=== PATIENT | female | born 1975 | race Two or more races ===

== ENCOUNTER 2018-10-18 08:00 | Emergency (ER) | payer MEDICAID ==
[~2018-10-18] VITALS: Ht 160 cm; Wt 108.9 kg
[~2018-10-18 08:00] MED LIST: NAP500T PO
[2018-10-18 08:19] VITALS: BP 157/103
== END 2018-10-18 08:41 | disposition home or self-care (01) ==
LOC: ER 08:00
DX: I10 Essential (primary) hypertension (principal); M19.90 Unspecified osteoarthritis, unspecified site; Z76.0 Encounter for issue of repeat prescription; Z88.0 Allergy status to penicillin; Z88.6 Allergy status to analgesic agent

== ENCOUNTER 2018-11-01 14:03 | Emergency (ER) | payer MEDICAID ==
[~2018-11-01] VITALS: Ht 160 cm; Wt 109.8 kg
[2018-11-01 14:30] VITALS: BP 153/110
== END 2018-11-01 14:59 | disposition home or self-care (01) ==
LOC: ER 14:06
DX: H66.93 Otitis media, unspecified, bilateral (principal); K21.9 Gastro-esophageal reflux disease without esophagitis; I10 Essential (primary) hypertension; Z76.0 Encounter for issue of repeat prescription; Z88.0 Allergy status to penicillin; Z88.6 Allergy status to analgesic agent

== ENCOUNTER 2020-02-18 20:05 | Emergency (ER) | payer MEDICAID ==
[~2020-02-18] VITALS: Ht 160 cm; Wt 99.8 kg
[2020-02-18] MEDS ORDERED: IBUPROFEN 800 MG TAB PO ONE (22:00)
[2020-02-18] MEDS ORDERED: ACETAMINOPHEN 500 MG TAB PO ONE (22:00)
[2020-02-18 22:36] VITALS: BP 146/82
== END 2020-02-18 22:38 | disposition home or self-care (01) ==
LOC: ER 20:05
DX: S93.401A Sprain of unspecified ligament of right ankle, initial encounter (principal); M25.461 Effusion, right knee; F41.9 Anxiety disorder, unspecified; M19.90 Unspecified osteoarthritis, unspecified site; K21.9 Gastro-esophageal reflux disease without esophagitis; I10 Essential (primary) hypertension; F20.9 Schizophrenia, unspecified; Z88.0 Allergy status to penicillin; Z88.5 Allergy status to narcotic agent; W18.2XXA Fall in (into) shower or empty bathtub, initial encounter; Y93.89 Activity, other specified; Y92.89 Other specified places as the place of occurrence of the external cause; Y99.8 Other external cause status
CPT/HCPCS: 73562; 73610

== ENCOUNTER 2022-12-06 12:17 | Emergency (ER) | payer MEDICAID ==
[~2022-12-06] VITALS: Ht 160 cm; Wt 81.0 kg
[2022-12-06 13:50] LABS: Basophils # (auto) 0.1 10 ^3/uL (0-0.2); Basophils % (auto) 0.4 % (0.0-2.0); Eosinophils # (auto) 0 10 ^3/uL (0-0.8); Eosinophils % (auto) 0.1 % (0.0-7.0); Hematocrit 43.2 % (36.0-46.0); Hemoglobin 14.7 g/dL (12.2-16.2); Lymphocytes # (auto) 2.5 10 ^3/uL (0.4-5.4); Lymphocytes % (auto) 13.5 % (10.0-50.0); Mean Corpuscular Hemoglobin 30.5 pg (28.0-32.0); Mean Corpuscular Hgb Conc. 33.9 g/dL (32.0-36.0); Monocytes # (auto) 1.1 10 ^3/uL (0-1.3); Monocytes % (auto) 6.2 % (0.0-12.0); Neutrophils # (auto) 14.7 10 ^3/uL (1.6-8.6); Neutrophils % (auto) 79.8 % (37.0-80.0); Red Blood Cells 4.81 10^6/uL (4.0-5.20); Red Cell Distribution Width 13.2 % (11.8-14.3); White Blood Cell 18.4 10^3/uL (4.4-10.8)
[2022-12-06 14:30] LABS: BUN/Creatinine Ratio 14.3 (10.0-20.0); Calcium 9.6 mg/dL (8.5-10.1); Potassium 4.4 mmol/L (3.5-5.1)
[2022-12-06 14:33] LABS: Bilirubin, Total 0.8 mg/dL (0.2-1.0)
[2022-12-06] MEDS ORDERED: LORazepam 2MG/ML-1ML VIAL IV ONE (16:45)
[2022-12-06] MEDS ORDERED: LORazepam 2MG/ML-1ML VIAL ONE (16:48)
[2022-12-06] MEDS ORDERED: ASPirin 325 MG TAB PO ONE (20:15)
[2022-12-06] MEDS ORDERED: NITROGLYCERIN 0.4 MG SL TAB SL PRN (20:15)
[2022-12-06] MEDS ORDERED: ACETAMINOPHEN 325 MG TAB PO PRN (20:15)
[2022-12-06] MEDS ORDERED: SODIUM CHLORIDE 0.9% 1,000 ML IV SCH (20:15)
[2022-12-06] MEDS ORDERED: ENOXAPARIN SOD 80 MG/0.8ML SYRINGE SC ONE (20:15)
[2022-12-06] MEDS ORDERED: MORPHINE SULFATE INJ 2 MG/ml SYRG IV PRN (20:15)
[2022-12-06 21:02] LABS: Cholesterol 181 mg/dL (< 200); HDL Cholesterol 63 mg/dL (40-59); LDL Cholesterol 106 mg/dL (< 100); Triglycerides 93 mg/dL (< 150)
[2022-12-06] MEDS ORDERED: LORazepam 2MG/ML-1ML VIAL IV PRN (21:15)
[2022-12-06 22:00] LABS: Urine Bacteria NONE SEEN /hpf (None Seen); Urine Blood 2+ /uL (Negative); Urine Mucus FEW (None Seen); Urine Specific Gravity 1.024 (1.001-1.035); Urine WBC 26 /hpf (0 - 5)
[2022-12-06] MEDS ORDERED: ENOXAPARIN SOD 80 MG/0.8ML SYRINGE SC SCH (22:00)
[2022-12-06 22:18] LABS: Amphetamine Screen, Urine POSITIVE (NEGATIVE); Barbiturate Scree,Urine NEGATIVE (NEGATIVE); Cannabinoid Screen, Urine NEGATIVE (NEGATIVE)
[2022-12-06 23:04] LABS: Alcohol, Urine < 3.0 mg/dL (0-10)
[2022-12-06 23:05] LABS: Benzodiazephine Screen, Urine NEGATIVE (NEGATIVE); Cocaine Screen, Urine NEGATIVE (NEGATIVE); Opiate Scree,Urine NEGATIVE (NEGATIVE); Phencyclidine Screen, Urine NEGATIVE (NEGATIVE)
[2022-12-07 04:08] VITALS: BP 142/98
[2022-12-07 05:59] LABS: Basophils # (auto) 0.1 10 ^3/uL (0-0.2); Basophils % (auto) 0.5 % (0.0-2.0); Eosinophils # (auto) 0.1 10 ^3/uL (0-0.8); Eosinophils % (auto) 1.2 % (0.0-7.0); Hematocrit 41.1 % (36.0-46.0); Hemoglobin 14.1 g/dL (12.2-16.2); Lymphocytes # (auto) 3.6 10 ^3/uL (0.4-5.4); Lymphocytes % (auto) 33.1 % (10.0-50.0); Mean Corpuscular Hemoglobin 30.7 pg (28.0-32.0); Mean Corpuscular Hgb Conc. 34.2 g/dL (32.0-36.0); Mean Corpuscular Volume 89.8 fL (80.0-100.0); Monocytes # (auto) 0.8 10 ^3/uL (0-1.3); Monocytes % (auto) 7.2 % (0.0-12.0); Neutrophils # (auto) 6.4 10 ^3/uL (1.6-8.6); Red Blood Cells 4.58 10^6/uL (4.0-5.20); Red Cell Distribution Width 13.2 % (11.8-14.3)
[2022-12-07 06:45] LABS: Albumin 3.6 g/dL (3.4-5.0); BUN/Creatinine Ratio 12.5 (10.0-20.0); Bilirubin, Total 0.6 mg/dL (0.2-1.0); Calcium 9.4 mg/dL (8.5-10.1); Total Protein 7.6 g/dL (6.4-8.2)
[2022-12-07] MEDS ORDERED: ASPirin 81 mg TAB PO SCH (10:00)
== END 2022-12-07 05:26 | disposition left against medical advice (07) ==
LOC: ER 12:17 → EDBD 12:17 → TELE 20:16 → UNDOADMIN 20:16 → ER 12-07 05:26
DX: I21.4 Non-ST elevation (NSTEMI) myocardial infarction (principal); K21.9 Gastro-esophageal reflux disease without esophagitis; I10 Essential (primary) hypertension; F41.9 Anxiety disorder, unspecified; Z79.899 Other long term (current) drug therapy
CPT/HCPCS: 36415; 70450; 71045; 80053; 80061; 80307; 81001; 83036; 84443; 84484; 85025; 87040; 93005; 93886; 96361; 96374; 96375; 96376; 99291; J1650; J2060; J7030; G0378

== ENCOUNTER 2023-03-04 15:30 | Inpatient (IN) | payer MEDICAID ==
[~2023-03-04] VITALS: Ht 160 cm; Wt 98.2 kg
[2023-03-04] MEDS ORDERED: SODIUM CHLORIDE 0.9% 1,000 ML IVB ONE (15:45)
[2023-03-04 16:17] LABS: Basophils # (auto) 0 10 ^3/uL (0-0.2); Basophils % (auto) 0.2 % (0.0-2.0); Eosinophils # (auto) 0.1 10 ^3/uL (0-0.8); Eosinophils % (auto) 0.8 % (0.0-7.0); Hematocrit 39.3 % (36.0-46.0); Hemoglobin 13.1 g/dL (12.2-16.2); Lymphocytes # (auto) 2.5 10 ^3/uL (0.4-5.4); Lymphocytes % (auto) 15.3 % (10.0-50.0); Mean Corpuscular Hemoglobin 29.8 pg (28.0-32.0); Mean Corpuscular Hgb Conc. 33.4 g/dL (32.0-36.0); Mean Corpuscular Volume 89.4 fL (80.0-100.0); Monocytes % (auto) 6.1 % (0.0-12.0); Neutrophils # (auto) 12.8 10 ^3/uL (1.6-8.6); Neutrophils % (auto) 77.6 % (37.0-80.0); Red Cell Distribution Width 13.6 % (11.8-14.3); White Blood Cell 16.5 10^3/uL (4.4-10.8)
[2023-03-04 16:25] VITALS: PULSE 80; RESP 16; O2SAT 97
[2023-03-04] MEDS ORDERED: IOHEXOL 300 MG/ML 100ML BOTTLE IJ ONE (16:27)
[2023-03-04 16:33] VITALS: PULSE 83; RESP 16; O2SAT 98
[2023-03-04 16:45] LABS: Albumin 3.5 g/dL (3.4-5.0); Anion Gap 5 (5-15); Blood Alcohol < 3.0 mg/dL (<10); Blood Urea Nitrogen 14 mg/dL (7-18); Calcium 8.8 mg/dL (8.5-10.1); Carbon Dioxide 26 mmol/L (21-32); Chloride 106 mmol/L (98-107); Glucose 87 mg/dL (74-106); Magnesium 2.4 mg/dL (1.6-2.6); Potassium 4.5 mmol/L (3.5-5.1); Sodium 137 mmol/L (136-145)
[2023-03-04 16:49] LABS: Alanine Aminotransferase 22 U/L (13-56); Alkaline Phosphatase 80 U/L (45-117); Aspartate Aminotransferase 19 U/L (15-37); BUN/Creatinine Ratio 8.6 (10.0-20.0); Bilirubin, Total 0.4 mg/dL (0.2-1.0); GFR African American 44 mL/min; GFR Non-African American 36 mL/min; Lactic Acid w/Reflex 3.2 mmol/L (0.4-2.0); Total Protein 6.6 g/dL (6.4-8.2)
[2023-03-04 16:52] LABS: Urine Bacteria NONE SEEN /hpf (None Seen); Urine Blood 3+ /uL (Negative); Urine Hyaline Cast MOD /lpf (0 - 2); Urine Mucus FEW (None Seen); Urine Specific Gravity 1.016 (1.001-1.035); Urine WBC 5 /hpf (0 - 5)
[2023-03-04] MEDS ORDERED: IOHEXOL 350 MG/ML 100ML IJ ONE (17:10)
[2023-03-04 17:11] LABS: Alcohol, Urine < 3.0 mg/dL (0-10); Amphetamine Screen, Urine NEGATIVE (NEGATIVE); Barbiturate Scree,Urine NEGATIVE (NEGATIVE); Benzodiazephine Screen, Urine NEGATIVE (NEGATIVE); Cannabinoid Screen, Urine NEGATIVE (NEGATIVE); Cocaine Screen, Urine NEGATIVE (NEGATIVE); Opiate Scree,Urine NEGATIVE (NEGATIVE); Phencyclidine Screen, Urine NEGATIVE (NEGATIVE)
[2023-03-04] MEDS ORDERED: AZITHROMYCIN 500MG/ 250ML 250 ML IV ONE (17:15)
[2023-03-04] MEDS ORDERED: levoFLOXacin 500MG 100 ML IV ONE (17:15)
[2023-03-04 20:10] VITALS: PULSE 89; RESP 14; O2SAT 98
[2023-03-04] MEDS ORDERED: levoFLOXacin 250MG 50 ML IV ONE (21:30)
[2023-03-04] MEDS ORDERED: ONDANSETRON HCL 4 MG/2 ML VIAL IV PRN (21:30)
[2023-03-04] MEDS ORDERED: DOCUSATE SOD 100 MG CAP PO PRN (21:30)
[2023-03-04] MEDS: SODIUM CHLORIDE 0.9% 1,000 ML IV SCH (22:17)
[2023-03-04] MEDS: ACETAMINOPHEN 325 MG TAB PO PRN (22:19)
[2023-03-04] MEDS ORDERED: MORPHINE SULFATE INJ 2 MG/ml SYRG IV PRN (22:45)
[2023-03-04] MEDS ORDERED: NITROGLYCERIN 0.4 MG SL TAB SL PRN (22:45)
[2023-03-05] VITALS (7 sets, daily range): BP systolic 100–124; BP diastolic 56–75; PULSE 73–96; RESP 17–22; TEMP 36.6; O2SAT 93–100
[2023-03-05] MEDS: HYDROcodone-ACET 5/325MG TAB PO PRN ×2 (02:23→21:59)
[2023-03-05] MEDS: ACETAMINOPHEN 325 MG TAB PO PRN ×2 (04:43→17:03)
[2023-03-05 06:14] LABS: Basophils # (auto) 0.1 10 ^3/uL (0-0.2); Basophils % (auto) 0.5 % (0.0-2.0); Eosinophils # (auto) 0.2 10 ^3/uL (0-0.8); Eosinophils % (auto) 1.6 % (0.0-7.0); Hematocrit 35.9 % (36.0-46.0); Lymphocytes # (auto) 3.7 10 ^3/uL (0.4-5.4); Lymphocytes % (auto) 29.5 % (10.0-50.0); Mean Corpuscular Hemoglobin 30.1 pg (28.0-32.0); Mean Corpuscular Hgb Conc. 33.4 g/dL (32.0-36.0); Mean Corpuscular Volume 89.9 fL (80.0-100.0); Monocytes # (auto) 0.9 10 ^3/uL (0-1.3); Monocytes % (auto) 7.2 % (0.0-12.0); Neutrophils # (auto) 7.7 10 ^3/uL (1.6-8.6); Neutrophils % (auto) 61.2 % (37.0-80.0); Red Blood Cells 3.99 10^6/uL (4.0-5.20); Red Cell Distribution Width 13.6 % (11.8-14.3); White Blood Cell 12.6 10^3/uL (4.4-10.8)
[2023-03-05 06:38] LABS: Potassium 4.4 mmol/L (3.5-5.1)
[2023-03-05 06:46] LABS: BUN/Creatinine Ratio 15.3 (10.0-20.0); Bilirubin, Total 0.3 mg/dL (0.2-1.0); Calcium 8.1 mg/dL (8.5-10.1); Total Protein 6.5 g/dL (6.4-8.2)
[2023-03-05] MEDS ORDERED: PNEUMOCOCCAL VACC POLYS 25 MCG/0.5 ML VIAL IM ONE (07:30)
[2023-03-05] MEDS: SODIUM CHLORIDE 0.9% 1,000 ML IV SCH ×2 (07:30→19:00)
[2023-03-05] MEDS ORDERED: ALBU108A5 IN (07:52)
[2023-03-05] MEDS ORDERED: LISI20TA56 PO (07:52)
[2023-03-05] MEDS ORDERED: LORA-622 PO (07:52)
[2023-03-05] MEDS: levoFLOXacin 250MG 50 ML IV SCH (09:56)
[2023-03-05] MEDS ORDERED: AZITHROMYCIN 500MG/ 250ML 250 ML IV SCH (10:00)
[2023-03-06] VITALS (7 sets, daily range): BP systolic 121–126; BP diastolic 74–87; PULSE 74–89; RESP 16–21; TEMP 36.6; O2SAT 95–100
[2023-03-06] MEDS: SODIUM CHLORIDE 0.9% 1,000 ML IV SCH ×2 (03:30→06:41)
[2023-03-06 06:11] LABS: Basophils # (auto) 0 10 ^3/uL (0-0.2); Basophils % (auto) 0.5 % (0.0-2.0); Eosinophils # (auto) 0.3 10 ^3/uL (0-0.8); Eosinophils % (auto) 3.1 % (0.0-7.0); Hematocrit 36.6 % (36.0-46.0); Hemoglobin 12.3 g/dL (12.2-16.2); Lymphocytes # (auto) 3.4 10 ^3/uL (0.4-5.4); Lymphocytes % (auto) 36.2 % (10.0-50.0); Mean Corpuscular Hemoglobin 29.9 pg (28.0-32.0); Mean Corpuscular Hgb Conc. 33.5 g/dL (32.0-36.0); Mean Corpuscular Volume 89.2 fL (80.0-100.0); Monocytes # (auto) 0.7 10 ^3/uL (0-1.3); Monocytes % (auto) 7.5 % (0.0-12.0); Neutrophils % (auto) 52.7 % (37.0-80.0); Nucleated Red Blood Cells % 0.1 %; Red Blood Cells 4.11 10^6/uL (4.0-5.20); Red Cell Distribution Width 13.6 % (11.8-14.3); White Blood Cell 9.5 10^3/uL (4.4-10.8)
[2023-03-06 06:14] LABS: Calcium 8.5 mg/dL (8.5-10.1); Magnesium 2.3 mg/dL (1.6-2.6)
[2023-03-06 06:16] LABS: BUN/Creatinine Ratio 14.3 (10.0-20.0)
[2023-03-06] MEDS: ACETAMINOPHEN 325 MG TAB PO PRN (07:43)
[2023-03-06] MEDS: levoFLOXacin 250MG 50 ML IV SCH (09:53)
[2023-03-06] MEDS: HYDROcodone-ACET 5/325MG TAB PO PRN ×2 (13:41→19:58)
[2023-03-07] VITALS (7 sets, daily range): BP systolic 105–140; BP diastolic 68–98; PULSE 72–89; RESP 16–21; TEMP 36.8; O2SAT 96–100
[2023-03-07] MEDS: SODIUM CHLORIDE 0.9% 1,000 ML IV SCH ×2 (03:57→09:30)
[2023-03-07] MEDS: HYDROcodone-ACET 5/325MG TAB PO PRN ×2 (07:05→16:53)
[2023-03-07] MEDS: levoFLOXacin 250MG 50 ML IV SCH (09:43)
[2023-03-07] MEDS ORDERED: levoFLOXacin 500MG 100 ML IV ONE (10:45)
[2023-03-07] MEDS ORDERED: NITR-52 PO (12:41)
[2023-03-07] MEDS ORDERED: NORT25CA PO (17:36)
[2023-03-07] MEDS ORDERED: HALOPERIDOL LACTATE 5 MG/ML INJ VIAL IM PRN (17:45)
[2023-03-08] MEDS: OLANZapine 5 MG TAB PO SCH ×2 (02:22→10:00)
[2023-03-08] MEDS: NITROFURANTOIN 100 mg CAP PO SCH ×2 (02:22→10:00)
[2023-03-08 05:00] VITALS: BP_SYST 120; BP_SYST 142; BP_DIAS 70; BP_DIAS 82; PULSE 69; PULSE 86; RESP 16; TEMP 98.5; O2SAT 97; O2SAT 99
[2023-03-08 07:35] LABS: Potassium 3.5 mmol/L (3.5-5.1)
[2023-03-08 07:38] LABS: Basophils # (auto) 0 10 ^3/uL (0-0.2); Basophils % (auto) 0.3 % (0.0-2.0); Eosinophils # (auto) 0.2 10 ^3/uL (0-0.8); Eosinophils % (auto) 1.6 % (0.0-7.0); Hematocrit 38.1 % (36.0-46.0); Hemoglobin 12.5 g/dL (12.2-16.2); Lymphocytes # (auto) 2.6 10 ^3/uL (0.4-5.4); Lymphocytes % (auto) 24.3 % (10.0-50.0); Mean Corpuscular Hemoglobin 29.5 pg (28.0-32.0); Mean Corpuscular Hgb Conc. 32.9 g/dL (32.0-36.0); Mean Corpuscular Volume 89.7 fL (80.0-100.0); Monocytes # (auto) 0.5 10 ^3/uL (0-1.3); Monocytes % (auto) 5.1 % (0.0-12.0); Neutrophils # (auto) 7.3 10 ^3/uL (1.6-8.6); Neutrophils % (auto) 68.7 % (37.0-80.0); Red Blood Cells 4.24 10^6/uL (4.0-5.20); Red Cell Distribution Width 13.9 % (11.8-14.3); White Blood Cell 10.6 10^3/uL (4.4-10.8)
[2023-03-08 07:40] LABS: BUN/Creatinine Ratio 9.2 (10.0-20.0); Calcium 9.3 mg/dL (8.5-10.1)
[2023-03-08 08:00] VITALS: PULSE 74; PULSE 77; RESP 17; O2SAT 100
[2023-03-08 08:45] VITALS: BP 151/90; PULSE 64; RESP 16; TEMP 98.3; O2SAT 99
[2023-03-08] MEDS ORDERED: OLAN1TAB7 PO (09:52)
[2023-03-08] MEDS ORDERED: levoFLOXacin 750MG 150 ML IV SCH (10:00)
[2023-03-08] MEDS ORDERED: LISINOPRIL 20 MG TAB PO SCH (10:00)
[2023-03-08] MEDS ORDERED: NORTRIPTYLINE HCL 25 MG CAP PO SCH (10:00)
[2023-03-08 12:53] VITALS: BP 120/77; PULSE 75; RESP 15; TEMP 98; O2SAT 98
[2023-03-08 13:24] VITALS: BP 146/86; PULSE 80; RESP 18; TEMP 98.3; O2SAT 96
== END 2023-03-08 15:25 | disposition home or self-care (01) | DRG 720 ==
LOC: EDBD 15:30 → ER 15:30 → TELE 22:37 → TELE-CENTR 03-05 02:16
PROVIDERS: ADMIT Internal Medicine Pulmonary Disease
DX: A41.9 Sepsis, unspecified organism (principal); N17.9 Acute kidney failure, unspecified; K76.0 Fatty (change of) liver, not elsewhere classified; I11.9 Hypertensive heart disease without heart failure; E86.0 Dehydration; K44.9 Diaphragmatic hernia without obstruction or gangrene; N39.0 Urinary tract infection, site not specified; F17.210 Nicotine dependence, cigarettes, uncomplicated; G43.909 Migraine, unspecified, not intractable, without status migrainosus; J45.909 Unspecified asthma, uncomplicated; E66.01 Morbid (severe) obesity due to excess calories; J98.11 Atelectasis; F20.9 Schizophrenia, unspecified; Z88.5 Allergy status to narcotic agent; Z88.0 Allergy status to penicillin; Z82.0 Family history of epilepsy and other diseases of the nervous system; Z82.3 Family history of stroke; Z82.49 Family history of ischemic heart disease and other diseases of the circulatory system; Z83.3 Family history of diabetes mellitus; Z68.38 Body mass index [BMI] 38.0-38.9, adult
CPT/HCPCS: 36415; 70450; 71045; 71260; 74177; 80048; 80053; 80307; 80320; 81001; 82962; 83605; 83735; 84484; 84702; 85025; 85379; 87040; 93005; 93306; 93886; 97110; 97116; 97163; 97530; G0378; J1956; J2405

== ENCOUNTER 2024-05-01 18:34 | Emergency (ER) | payer MEDICAID ==
[~2024-05-01] VITALS: Ht 160 cm; Wt 80.4 kg
[~2024-05-01 18:34] MED LIST changes: +ALBU108A5 IN; +LISI20TA56 PO; +LORA-622 PO; -NAP500T PO; +NITR-52 PO; +NORT25CA PO; +OLAN1TAB7 PO
[2024-05-01 19:21] LABS: Basophils # (auto) 0.1 10 ^3/uL (0-0.2); Eosinophils # (auto) 0.1 10 ^3/uL (0-0.8); Hemoglobin 12.9 g/dL (12.2-16.2); Monocytes # (auto) 0.7 10 ^3/uL (0-1.3); Nucleated Red Blood Cells % 0.1 %
[2024-05-01 19:23] LABS: Basophils % (auto) 0.8 % (0.0-2.0); Eosinophils % (auto) 0.6 % (0.0-7.0); Hematocrit 38.3 % (36.0-46.0); Lymphocytes % (auto) 19.9 % (10.0-50.0); Mean Corpuscular Hgb Conc. 33.7 g/dL (32.0-36.0); Monocytes % (auto) 6.9 % (0.0-12.0); Neutrophils # (auto) 7.2 10 ^3/uL (1.6-8.6); Neutrophils % (auto) 71.8 % (37.0-80.0); Platelet Count (auto) 485 10^3/uL (140-450); Red Cell Distribution Width 16.9 % (11.8-14.3); White Blood Cell 10.1 10^3/uL (4.4-10.8)
[2024-05-01 19:48] LABS: Alanine Aminotransferase 20 U/L (7-40); Albumin 4.7 g/dL (3.2-4.8); Alkaline Phosphatase 64 U/L (46-116); Anion Gap 9 (5-15); Aspartate Aminotransferase 21 U/L (13-40); BUN/Creatinine Ratio 10.6 (10.0-20.0); Bilirubin, Total 0.7 mg/dL (0.2-1.0); Blood Urea Nitrogen 11 mg/dL (9-23); Calcium 10.7 mg/dL (8.7-10.4); Carbon Dioxide 23 mmol/L (20-30); Chloride 105 mmol/L (98-107); Glucose 98 mg/dL (74-106); Potassium 4.2 mmol/L (3.5-5.1); Sodium 137 mmol/L (136-145); Total Protein 7.4 g/dL (5.7-8.2)
[2024-05-01 21:27] LABS: Urine Bacteria None Seen /hpf (None Seen)
[2024-05-01 21:42] LABS: Urine Blood Negative /uL (Negative); Urine Clarity Turbid (Clear); Urine Color Yellow (Yellow); Urine Hyaline Cast FEW /lpf (0 - 2); Urine Mucus FEW (None Seen); Urine Protein, UAD 1+ (Negative); Urine Specific Gravity 1.042 (1.001-1.035); Urine Urobilinogen 2 mg/dL (Negative); Urine WBC 1 /hpf (0 - 5)
[2024-05-02 00:10] VITALS: BP 136/73; PULSE 82; RESP 16; TEMP 98.2; O2SAT 97
== END 2024-05-02 00:21 | disposition home or self-care (01) ==
LOC: ER 18:34
DX: R07.89 Other chest pain (principal); F17.210 Nicotine dependence, cigarettes, uncomplicated; F41.9 Anxiety disorder, unspecified; J45.909 Unspecified asthma, uncomplicated; M19.90 Unspecified osteoarthritis, unspecified site; F32.A Depression, unspecified; K21.9 Gastro-esophageal reflux disease without esophagitis; I10 Essential (primary) hypertension; I25.2 Old myocardial infarction; F20.9 Schizophrenia, unspecified; Z79.899 Other long term (current) drug therapy; Z88.0 Allergy status to penicillin; Z88.5 Allergy status to narcotic agent; Z90.89 Acquired absence of other organs
CPT/HCPCS: 36415; 71045; 80053; 81001; 84484; 85025; 93005